=== PATIENT | female | born 1980 | race Hispanic/Latino ===

== ENCOUNTER 2025-06-25 12:23 | Emergency (ER) | payer SELFPAY ==
[~2025-06-25] VITALS: Ht 160 cm; Wt 53.5 kg
[2025-06-25] MEDS: SODIUM CHLORIDE 0.9% 1000ML 1,000 ML IV ONE (12:48)
[2025-06-25] MEDS: LORAZEPAM INJ 2 MG/ML VIAL IV ONE ×2 (12:49→15:14)
[2025-06-25] MEDS: ONDANSETRON HCL INJ 2MG/ML 2ML 2 MG/ML VIAL IV STA (12:49)
[2025-06-25 14:07] VITALS: PULSE 58; RESP 14; TEMP 97.5; O2SAT 99
== END 2025-06-25 14:07 | disposition home or self-care (01) ==
LOC: FSED 12:27
DX: R55 Syncope and collapse (principal); R42 Dizziness and giddiness; R11.0 Nausea; R06.4 Hyperventilation
CPT/HCPCS: 80053; 84484; 85025; 85379; 93005; 96374; 96375; 99283; J2060; J2405; J7030